=== PATIENT | male | born 1980 | race Caucasian/White ===

== ENCOUNTER 2017-08-23 15:39 | Emergency (ER) | payer MEDICAID ==
--- NOTE | 2017-08-23 15:39 | NUR ---
Patient to ER via EMS, with ALOC, patient found in field to have blood sugar of 41. IV was started by EMS and patient was given D10 IV, with repeat blood sugar of 144 upon arrival to ER by EMS. Patient is now awake, alert and oriented in no acute distress without complaints and states that he wants to leave AMA and does not wish to be seen in ER.
--- NOTE | 2017-08-23 15:39 | NUR ---
Patient to ER via EMS, placed in Hallway. Patient wants to leave AMA.
--- NOTE | 2017-08-23 15:40 | NUR ---
IV dc'd intact by full charge bookkeeper Roger, dressing applied-no active bleeding noted. Patient still continues to refuse treatment in ER, and wishes to leave AMA. AMA form signed and patient left ER in no acute distress, ambulating with slow, steady gait. Patient states is on theway to pick him up.
--- NOTE | 2017-08-23 15:40 | NUR ---
Patient does not wish to proceed with medical care recommended by Dr Lucio. Patient given information related to possible complications, up to and including , which could occur as a result of leaving hospital at this time. Patient verbalizes understanding of risks involved leaving against medical advice. Patient has signed AMA form.
--- NOTE | 2017-08-23 15:40 | NUR ---
Dr Lucio at bedside to evaluate patient. Dr Lucio has seen and evaluated patient, patient still refusing to be seen in ER, wanting to leave AMA. Per Dr Lucio-have patient sign out AMA.
== END 2017-08-23 15:45 | disposition left against medical advice (07) ==
LOC: SED 15:39
DX: E16.2 Hypoglycemia, unspecified (principal); E11.9 Type 2 diabetes mellitus without complications
CPT/HCPCS: 99283